=== PATIENT | female | born 1975 | race Caucasian/White ===

== ENCOUNTER → 2021-07-23 12:56 | Outpatient (CLI) | payer OTHER, SELFPAY ==
--- NOTE | ~2021-07-23 | US_ITS ---
EXAMINATION: US axilla LT DATE: 07/23/2021 13:19 INDICATION: Neoplasm of uncertain behavior of skin . Chronic enlarging palpable region at the left ax illa. TECHNIQUE: Multiple grayscale and Doppler ultrasound images of the region of concern at the left axil la were obtained. COMPARISON: None FINDINGS: Normal-sized left axillary lymph node measuring 1.3 x 1.2 x 0.9 cm with large central echogenic fatty hilum with thin crescentic surrounding peripheral cortex. There is focal thickening of the subcutane ous fat at the region of the palpable abnormality and which is also visible along the contour of the skin surface. No clearly defined encapsulated lipoma. No other masses or abnormal fluid collections. IMPRESSION: 1. Palpable lesion of concern appears to correspond to a region of focal thickening of the normal sub cutaneous fat with no discrete lipoma or other abnormal masses or fluid collections identified. Reviewed, dictated and finalized at location B. [employer] IMPRESSION: 1. Palpable lesion of concern appears to correspond to a region of focal thicke breann of the normal subcutaneous fat with no discrete lipoma or other abnormal m asses or fluid collections identified.
== END ==
PROVIDERS: PCP Internal Medicine
DX: R22.2 Localized swelling, mass and lump, trunk (principal)
CPT/HCPCS: 76882

== ENCOUNTER 2021-11-13 15:06 | Outpatient (CLI) | payer OTHER, SELFPAY ==
--- NOTE | ~2021-11-13 | XR_ITS ---
XR hip RT 2V w AP pelvis DATE: 11/13/2021 15:50 INDICATION: Posterior right hip pain, chronic. No recent injury. TECHNIQUE: AP pelvis. AP and lateral views of right hip. COMPARISON: None FINDINGS: Postoperative changes noted at the mid to upper lumbar spine. There is mild dextroscoliosis as well as degenerative change of the lumbar spine. The pubic symphysis and sacroiliac joints are intact. No pelvic fracture or bone destruction is detected. Moderate bilateral hip osteoarthritis. No fracture, dislocation, avascular necrosis or bone destruction of the right hip. IMPRESSION: Mild bilateral hip osteoporosis Postoperative change of lumbar spine Degenerative change and mild dextroscoliosis of lumbar spine Reviewed, dictated and finalized at location A.
--- NOTE | ~2021-11-13 | XR_ITS ---
EXAMINATION: XR lumbar spine 6V w bending DATE: 11/13/2021 15:50 INDICATION: Left-sided low back pain. TECHNIQUE: 8 views of lumbar spine including flexion and extension views were obtained. COMPARISON: Thoracic spine radiographs 11/09/2014 FINDINGS: There is 29 degrees dextroscoliosis of thoracolumbar spine. There is a distraction kervin from the thoracic spine to L3. There are changes of anterior fusion procedure from T11 to L3 with right-s ided instrumentation. There is 3 mm retrolisthesis of L3 on L4. Vertebral body heights are normal. Th ere is moderately decreased disc height at L3-L4 and mildly decreased disc height at L4-L5 with endpl ate remodeling. There is multilevel facet joint osteoarthritis, severe on the right from L3-L4 throug h L5-S1 and on the left at L5-S1. There is no abnormal motion with flexion or extension. IMPRESSION: 1. Thoracolumbar dextroscoliosis. 2. Anterior fusion procedure from T11 to L3. Posterior distraction kervin from the thoracic spine to L3. 3. Moderate lower lumbar spondylosis. Reviewed, dictated and finalized at location A.
== END 2021-11-13 15:07 | disposition home or self-care (01) ==
PROVIDERS: PCP Physician Assistant; Visit Provider Physician Assistant
DX: M25.551 Pain in right hip (principal); M54.41 Lumbago with sciatica, right side; G89.29 Other chronic pain; M41.85 Other forms of scoliosis, thoracolumbar region; Z98.1 Arthrodesis status; M47.816 Spondylosis without myelopathy or radiculopathy, lumbar region; M16.0 Bilateral primary osteoarthritis of hip; M41.86 Other forms of scoliosis, lumbar region
CPT/HCPCS: 72114; 73502

== ENCOUNTER 2021-12-05 09:03 | Outpatient (CLI) | payer OTHER, SELFPAY ==
--- NOTE | ~2021-12-05 | NM_ITS ---
EXAMINATION: NM stress w perf spect multi DATE: 12/05/2021 12:22 INDICATION: Dyspnea on exertion. TECHNIQUE: Rest images were obtained following intravenous administration of 9 mCi Tc99m tetrofosmin (Myoview). The patient performed an exercise activity. At peak exercise, 27.5 mCi Tc99m tetrofosmin ( Myoview) was administered intravenously, and stress images were obtained. Data was reconstructed into short axis and horizontal and vertical long axis SPECT images. Gated SPECT images were also obtained . COMPARISON: None. FINDINGS: There is no definite reversible or fixed perfusion abnormality to suggest ischemia or infar ction. There is no segmental wall motion abnormality. Left ventricular ejection fraction measures > 70%. IMPRESSION: 1. No definite ischemia or infarct. 2. Normal left ventricular ejection fraction measuring >70%. Reviewed, dictated and finalized at location B.
--- NOTE | 2021-12-05 09:07 | EST_ITS ---
Patient Info Name: Chen Diaz Age: 45 years : 1975 Gender: Female Ht: 62 in Wt: 175 lbs BSA: 1.90 m2 HR: 87 bpm BP: 113 / 77 mmHg Heart Rhythm: Sinus Rhythm Exam Date: 12/05/2021 10:24 AM Exam Location: [facility] Stress Patient Status: Outpatient Admit Date: 12/05/2021 Staff Ordering Physician: Royce Arias PA-C Attending Provider: Royce Arias PA-C Exercise Technologist: Kristen Polanco CT Exercise Physician: Enrique Galeano DO Exam Type: CA stress test treadmill w NM Study Info Indications R06.02 - Shortness of breath A nuclear stress test was performed. Summary 1. 1. Negative David exercise stress test for ischemic ST changes by ECG criteria. 2. 2. Good functional capacity, achieving 10 METs of workload. 3. 3. Appropriate HR response to exercise. 4. 4. Appropriate HR recovery at 1 minute post exercise. 5. 5. Nuclear scan to follow and will be reported separately. Please correlate with it. 6. 6. Patient informed of the above results. Protocol: David Stress ECG Details Stage: REST Duration (min): 1 min : 18 sec Speed (mph): 0.0 Grade (%): 0 HR (bpm): 86 SBP (mmHg): 113 DBP (mmHg): 77 METS: --- Stage: REST Duration (min): 16 min : 38 sec Speed (mph): 0.0 Grade (%): 0 HR (bpm): 92 SBP (mmHg): 113 DBP (mmHg): 77 METS: --- Stage: STAGE 1 Duration (min): 1 min : 0 sec Speed (mph): 1.7 Grade (%): 10 HR (bpm): 113 SBP (mmHg): 113 DBP (mmHg): 77 METS: --- Stage: STAGE 1 Duration (min): 2 min : 0 sec Speed (mph): 1.7 Grade (%): 10 HR (bpm): 123 SBP (mmHg): 113 DBP (mmHg): 77 METS: --- Stage: STAGE 1 Duration (min): 3 min : 0 sec Speed (mph): 1.7 Grade (%): 10 HR (bpm): 125 SBP (mmHg): 151 DBP (mmHg): 82 METS: --- Stage: STAGE 2 Duration (min): 1 min : 0 sec Speed (mph): 2.5 Grade (%): 12 HR (bpm): 130 SBP (mmHg): 151 DBP (mmHg): 82 METS: --- Stage: STAGE 2 Duration (min): 2 min : 0 sec Speed (mph): 2.5 Grade (%): 12 HR (bpm): 137 SBP (mmHg): 162 DBP (mmHg): 84 METS: --- Stage: STAGE 2 Duration (min): 3 min : 0 sec Speed (mph): 2.5 Grade (%): 12 HR (bpm): 140 SBP (mmHg): 162 DBP (mmHg): 84 METS: --- Stage: STAGE 3 Duration (min): 1 min : 0 sec Speed (mph): 3.4 Grade (%): 14 HR (bpm): 148 SBP (mmHg): 161 DBP (mmHg): 87 METS: --- Stage: STAGE 3 Duration (min): 2 min : 0 sec Speed (mph): 3.4 Grade (%): 14 HR (bpm): 154 SBP (mmHg): 161 DBP (mmHg): 87 METS: --- Stage: STAGE 3 Duration (min): 2 min : 11 sec Speed (mph): 3.4 Grade (%): 14 HR (bpm): 154 SBP (mmHg): 161 DBP (mmHg): 87 METS: --- Stage: RECOVERY Duration (min): 0 min : 48 sec Speed (mph): 0.0 Grade (%): 0 HR (bpm): 149 SBP (mmHg): 160 DBP (mmHg):
== END 2021-12-05 09:04 | disposition home or self-care (01) ==
PROVIDERS: PCP Internal Medicine; Visit Provider Physician Assistant
DX: R06.02 Shortness of breath (principal)
CPT/HCPCS: 78452; 93017; A9502

== ENCOUNTER 2021-12-07 10:04 | Outpatient (CLI) | payer OTHER, SELFPAY ==
--- NOTE | ~2021-12-07 | CT_ITS ---
EXAMINATION: CT lumbar spine [facility] EXAM DATE: 12/07/2021 10:36 INDICATION: M47.9 - Spondylosis, unspecified . TECHNIQUE: Spiral CT of the lumbar spine was performed without contrast. Axial, coronal and sagittal images lumbar spine were reviewed. The dose-length product (DLP) for this examination was 818.59 mG y-cm. The exposure was tailored according to patient size (auto mA exposure control), and iterative reconstruction (ASIR) was used as additional dose reduction technique. There is no prior study for comparison. FINDINGS: There is left-sided thoracolumbar Koch kervin, appears intact on the oil scout image. Plate and screws along the right side of the thoracolumbar spine T12-L3, also with complete solid bone brid ging of these levels. There is 3 mm retrolisthesis L3 on L4 with mild to moderate disc disease. The v ertebral bodies are otherwise aligned. There is mild thoracolumbar dextroscoliosis. Paraspinal soft t issue is unremarkable. Level by level evaluation: Limited due to metallic artifact at the thoracolumbar region. T11-12: There is osseous fusion of these vertebral bodies. Facet arthropathy: Fused. Neural foraminal stenosis: No stenosis. Central canal stenosis: No stenosis. T12-L1: There is osseous fusion of these vertebral bodies. Facet arthropathy: Fused. Neural foraminal stenosis: No stenosis. Central canal stenosis: No stenosis. L1-L2: There is osseous fusion of these vertebral bodies. Facet arthropathy: Fused. Neural foraminal stenosis: No stenosis. Central canal stenosis: No stenosis. L2-L3: There is osseous fusion of these vertebral bodies. Facet arthropathy: Fused. Neural foraminal stenosis: No stenosis. Central canal stenosis: No stenosis. L3-L4: There is a mild to moderate diffuse disc bulge. Facet arthropathy: Mild to moderate. Neural foraminal stenosis: Mild to moderate left, mild right. Central canal stenosis: Mild. L4-L5: There is a mild to moderate diffuse disc bulge. Facet arthropathy: Severe right, mild to moderate left. Neural foraminal stenosis: Moderate left, mild to moderate right. Central canal stenosis: No stenosis. L5-S1: There is a mild diffuse disc bulge. Facet arthropathy: Moderate. Neural foraminal stenosis: Mild bilateral. Central canal stenosis: No stenosis. IMPRESSION: 1. Intact thoracolumbar fusion. 2. Severe right L4-5 facet arthropathy, moderate bilateral at L5-S1. Reviewed, dictated and finalized at location A.
== END 2021-12-07 10:05 | disposition home or self-care (01) ==
PROVIDERS: PCP Internal Medicine; Visit Provider Physician Assistant
DX: M47.9 Spondylosis, unspecified (principal); Z98.1 Arthrodesis status; M12.88 Other specific arthropathies, not elsewhere classified, other specified site
CPT/HCPCS: 72131

== ENCOUNTER 2023-02-03 16:52 | Outpatient (CLI) | payer OTHER, SELFPAY ==
--- NOTE | ~2023-02-03 | XR_ITS ---
Left Shoulder Technique: AP and scapular Y views were obtained. Clinical History: Pain Findings: No fracture or dislocation is seen. Osseous alignment is anatomic. The glenohumeral and acr omioclavicular joint spaces are preserved. Soft tissues are unremarkable. Impression: Unremarkable left shoulder radiographs. Reviewed, dictated and finalized at [facility]. Impression: Unremarkable left shoulder radiographs.
--- NOTE | ~2023-02-03 | XR_ITS ---
Cervical Spine: AP, lateral, open-mouth views Clinical History: Pain Findings: The normal lordotic curve is maintained. No fracture or subluxation evident. There is anter ior fusion hardware extending from C5 to C7. There is advanced degenerative disc narrowing at C4-C5. Pre-vertebral soft tissues are unremarkable. Impression: Anterior fusion from C5 to C7. Advanced degenerative disc narrowing at C4-C5. Reviewed, dictated and finalized at [facility]. Impression: Anterior fusion from C5 to C7. Advanced degenerative disc narrowing at C4-C5.
== END 2023-02-03 16:53 | disposition home or self-care (01) ==
LOC: ANHIMG 16:55
PROVIDERS: PCP Internal Medicine; Visit Provider Internal Medicine
DX: M47.812 Spondylosis without myelopathy or radiculopathy, cervical region (principal); M43.22 Fusion of spine, cervical region; M25.512 Pain in left shoulder
CPT/HCPCS: 72040; 73030

== ENCOUNTER 2023-03-21 08:45 | Outpatient (RCR) | payer OTHER, SELFPAY ==
--- NOTE | 2023-03-03 11:58 | OPREHPOC ---
Outpatient Therapy Plan of Care This is a Multidisciplinary Plan of Care that may contain components documented by all disciplines (PT, OT, and ST.) PT Problem 1 PT Problem #1 Knowledge Deficit PT Goal 1 Goal Pt to be IND with issued HEP Target Visit 8 PT Problem 2 PT Problem #2 Pain PT Goal 1 Goal Pt to report neck and shoulder pain no greater than 3/10 in the last week. Target Visit 8 PT Goal 2 Goal Pt to report 75% improvement in overall symptoms Target Visit 8 PT Problem 3 PT Problem #3 Impaired Range of Motion PT Goal 1 Goal Pt to improve gunnar lateral flexion from to 20deg Target Visit 8 PT Problem 4 PT Problem #4 Impaired Functional Mobil PT Goal 1 Goal Pt to demonstrates improved posture in upright sitting Target Visit 8
--- NOTE | 2023-03-03 11:58 | PTOPEVAL1 ---
Assessment and note entered by Irina Zarate, PT, DPT Evaluation Information Assessment Status Evaluation Diagnosis cervicalgia Onset 1 month Subjective Information Pt reports a history of scoliosis with rods down her thoracic and lumbar spine. In 2005 she also had a C5-C7 anterior fusion. She states since her neck surgery she has always had a very tolerable pain. She reports in the last month her neck, head , and upper shoulders have been hurting significantly more. She also reports her L shoulder hurts more than intermittent jaw pain. She reports increased pain throughout the day. Pt reports 2/10 at rest and 8/10 at worst in the evening. Reported Pain Level Pain Score 2: Self Report Assessment PT Clinical Summary Chen presents to therapy today for her initial evaluation with a diagnosis of cervicalgia. She has a history of a complete thoracic and lumbar fusion d/t isopathic scoliosis, and a C5-C7 anterior fusion. Pt reports pain that progressed throughout the day up to 8/10 at the worst. Today she demonstrates soft tissue tenderness and increased tissue density, decreased cervical ROM in all direction limited by muscle tension vs surgical hardware, and postural abnormalities. Skilled physical therapy services are indicated to improve ROM, improve cervical strength, decreased pain, improve soft tissue extensibility, and to return to PLOF. Plan of Care Interventions Check Out for Orthotic/Pr,Electrical Stimulation, Hot Pack/Cold Pack,Manual Therapy,Neuro Re- education,Patient/Caregiver Educati,Therapeutic Activities,Therapeutic Exercise PT Services Indicated Yes Treatment Frequency and 2x/wk for 4 wks Duration These treatments will address the objective and functional deficits as defined above. The patient will be advanced safely and appropriately in order for the patient to progress towards his/her prior level of function. Additional exercises will be introduced and as well as a comprehensive home exercise program upon discharge, if needed, ?to ensure carryover of functional gains achieved in the clinic. This treatment plan has been reviewed and agreement upon by the patient.
--- NOTE | 2023-03-14 10:19 | PCPTNOTE ---
Patient called and left voicemail she needed to cancel appointment. No reason given.
--- NOTE | 2023-03-19 16:24 | PCPTNOTE ---
Patient called to cancel due to being out of town.
--- NOTE | 2023-03-31 08:50 | PTOPDC ---
Assessment and note entered by Irina Zarate, PT, DPT Evaluation Information Assessment Status Discharge - Pt Not Present Diagnosis cervicalgia Onset 1 month Subjective Information Pt called to cancel her remaining appointment. She states she is doing well and no longer needs to continue with therapy. Assessment PT Clinical Summary Chen completed 5 visits of skilled therapy from to 03/28/23. She will be discharged at this time per patient request. Plan of Care PT Services Indicated No
== END 2023-03-31 10:04 | disposition home or self-care (01) ==
LOC: ANHGOSHPT 08:45
PROVIDERS: PCP Internal Medicine; Visit Provider Internal Medicine
DX: M54.2 Cervicalgia (principal)
CPT/HCPCS: 97014; 97110; 97112; 97140; 97161; G0283